=== PATIENT | male | born 1960 | race Caucasian/White ===

== ENCOUNTER 2017-01-27 07:21 | Day surgery (SDC) | payer OTHER ==
[~2017-01-27 07:21] MED LIST: ACETAMINOPHEN 1000MG/100 ML PREMIX IV ONE
[2017-01-27] MEDS ORDERED: BUPIVACAINE 0.25% W/EPI MPF 30ML VIAL IVP ONE (10:02)
[2017-01-27] MEDS ORDERED: DESFLURANE 240 ML BTL INH ONE (14:00)
[2017-01-27] MEDS ORDERED: LIDOCAINE 2% MDV (20MG/ML) 20ML VIAL IV ONE (14:00)
[2017-01-27] MEDS ORDERED: FENTANYL PF 100MCG/2ML VIAL IV ONE (14:00)
[2017-01-27] MEDS ORDERED: MIDAZOLAM HCL 2MG/2ML VIAL IV ONE (14:00)
[2017-01-27] MEDS ORDERED: DEXAMETHASONE 4 MG/ML 1ML VIAL IVP ONE (14:00)
[2017-01-27] MEDS ORDERED: ONDANSETRON HCL IV 4 MG/2 ML VIAL IVP ONE (14:00)
[2017-01-27] MEDS ORDERED: PROPOFOL 10 MG/ML VIAL IV ONE (14:00)
--- NOTE | 2017-01-28 15:56 | Operative Note ---
DATE OF SURGERY: 01/27/17 PREOPERATIVE DIAGNOSIS: POSTERIOR SCALP MASS. POSTOPERATIVE DIAGNOSIS: POSTERIOR SCALP MASS. OPERATION: EXCISION OF POSTERIOR SCALP MASS SURGEON: Hany Anguiano D.O. STUDIO ASSISTANT: Deb Montero. INDICATION: The patient is a [id number] male who about three to four years ago had a lipomatous mass removed from the posterior aspect of his scalp. This is down near his occiput on his right. He came into the clinic a few weeks ago with another mass just above the prior one. Clinically, this had the appearance of another lipomatous growth. We did discuss excision versus observation and he desired surgical excision secondary to chronic headaches. I let him know that I could not guarantee resolution with excision. Other risks include; bleeding, infection, recurrence, injury to accessory nerve, and he understood this fully. PROCEDURE: Therefore after consent was signed and questions answered, he was taken to the Operating Room and placed in the supine position. General anesthesia was administered per the Department of Anesthesia. The patient was then rotated to the left lateral position. His shoulder was taped down. His scalp and neck were prepped and draped in the usual sterile fashion. The area around the mass was anesthetized with a total of 8 mL of 0.25% Sensorcaine with Epinephrine. A localized field block was also done. At this time, a 4 cm incision was made and this was carried down to the capsule of a multilobulated lipomatous mass. This was dissected free from the surrounding tissue using cautery. This did go down to the fascia of his occipital muscle. This was then completely excised. I didn't feel there were any other projections remaining. The wound was then closed with 3-0 nylon secondary to his Vicryl allergy and he tolerated the procedure well. I will see him back in two weeks. I did discuss with the about potential stromal formation and potential recurrence in the future and she understood this fully. Hany Anguiano D.O. cc: Josiah Juarez D.O. JOB NUMBER: [id number] MTDD
== END 2017-01-27 09:40 | disposition home or self-care (01) ==
LOC: SUR 07:21
PROVIDERS: ATTEND Surgery
DX: D17.0 Benign lipomatous neoplasm of skin and subcutaneous tissue of head, face and neck (principal); I10 Essential (primary) hypertension
CPT/HCPCS: 11426; 00300; J2405; J3010

== ENCOUNTER 2017-02-11 10:54 | Emergency (ER) | payer OTHER ==
[2017-02-11] MEDS ORDERED: CLINDAMYCIN 600MG/50ML PREMIX 600 MG in DEXTROSE 1 BAG IV ONE (11:12)
--- NOTE | 2017-02-11 11:18 | Emergency Department Record ---
History of Present Illness - General Chief complaint: ENT Stated complaint: EAR PAIN Time Seen by Provider: 02/11/17 11:12 Source: Patient Mode of Arrival: Ambulatory Limitations: No limitations - History of Present Illness Initial comments: 57 yo male presents with right sided ear redness, swelling, rash and pain. He recently had a mass removed from the right posterior scalp. He saw his surgeon yesterday. The operative site was examined and noted to be free or redness or drainage. The sutures were removed. At that appointment a rash was noted under the right ear that was raised, red, and painful. He saw his PCP yesterday and was diagnosed with possible shingles. He was started on Famvir. Today the area is swollen, the ear is swollen, and he has pain around the ear, face, and neck. MD complaint: Ear pain Onset/Timin -: Days(s) Location: R ear Severity: Moderate Severity scale (1-10): 9 Quality: Aching Consistency: Constant Improves with: None Worsens with: Movement - Related Data Home Medications Medication Instructions Recorded Confirmed Last Taken Famciclovir [Famvir] 500 mg PO TID 02/11/17 02/11/17 1 Day Ago Ibuprofen [Motrin] 800 mg PO Q8H PRN 02/11/17 02/11/17 1 Day Ago Tramadol HCl [Ultram] 50 mg PO Q8H 02/11/17 02/11/17 1 Day Ago Triamterene/Hydrochlorothiazid 1 each PO DAILY 02/11/17 02/11/17 1 Day Ago [Dyazide 37.5-25 Capsule] Allergies Allergy/AdvReac Type Severity Reaction Status Date / Time Penicillins [PENICILLINS] Allergy Intermediate DIZZINESS Verified 02/11/17 11:04 Travel Screening - Travel/Exposure Within Last 30 Days Have you traveled within the last 30 days?: No - Travel/Exposure Within Last Year Have you traveled outside the [place] in the last year?: No - Additonal Travel Details Have you been exposed to anyone with a communicable illness?: No - Travel Symptoms Symptom Screening: None Review of Systems Constitutional: Denies: Chills, Fever, Weakness Eyes: Denies: Eye discharge ENT: Reports: Ear pain, Other (Neck pain, facial pain). Denies: Congestion, Throat pain Respiratory: Denies: Cough Cardiovascular: Denies: Chest pain, Palpitations, Syncope Endocrine: Denies: Fatigue, Polydipsia, Polyuria Gastrointestinal: Denies: Abdominal pain, Diarrhea, Nausea, Vomiting Genitourinary: Denies: Dysuria, Frequency, Hematuria Musculoskeletal: Denies: Arthralgia, Back pain, Joint swelling, Myalgia Skin: Reports: Change in color, Rash. Denies: Bruising Neurological: Reports: Headache. Denies: Abnormal gait, Confusion, Numbness, Seizure, Tingling, Tremors, Vertigo, Weakness Psychiatric: Denies: Anxiety Hematological/Lymphatic: Denies: Anemia, Blood Clots, Easy bleeding, Easy bruising, Swollen glands Past Medical History - SOCIAL HISTORY Smoking Status: Never smoker Alcohol Use: None Drug Use: None - RESPIRATORY Hx Respiratory Disorders: No - CARDIOVASCULAR Hx Cardio Disorders: Yes Hx Hypertension: Yes (on meds good control) - NEURO Hx Neuro Disorders: Yes Hx Dizziness: Yes (menieres) Hx Headaches: Yes (in am from cyst on scalp) - GI Hx GI Disorders: No - Hx Genitourinary Disorders: Yes Hx Kidney Stones: Yes - ENDOCRINE Hx Endocrine Disorders: No - MUSCULOSKELETAL Hx Musculoskeletal Disorders: No - PSYCH Hx Psych Problems: No - HEMATOLOGY/ONCOLOGY Hx Hematology/Oncology Disorders: No Family Medical History Any Significant Family History?: Yes Hx Cancer: Father, Mother Hx HTN: Father, Mother Physical Exam - General General Appearance: Alert, Oriented x3, Cooperative, No acute distress Limitations: No limitations - Head Head exam: Other Image of Face/Head: 1 - healing surgical site, no erythema or drainage - Eye Eye exam: Normal appearance, PERRL. negative: Conjunctival injection - ENT ENT exam: Mucous membranes dry, Mucous membranes moist. negative: Normal exam, TM's normal bilaterally (Right TM erythema) Ear exam: External canal tenderness, Other (Ear erythema with mild swelling, mild canal swelling, no pus, no no blisters on the ear or in the canal). negative: Normal external inspection, Auricular trauma Nasal Exam: Normal inspection. negative: Discharge, Sinus tenderness Mouth exam: Normal external inspection, Tongue normal Teeth exam: Normal inspection. negative: Dental caries Throat exam: negative: Normal inspection, Tonsillar erythema, Tonsillomegaly, Tonsillar exudate, L peritonsillar mass - Neck Neck exam: Tenderness (he is tender inferior and anterior to the ear). negative : Lymphadenopathy, Meningismus - Respiratory Respiratory exam: Normal lung sounds bilaterally. negative: Respiratory distress - Cardiovascular Cardiovascular Exam: Regular rate, Normal rhythm, Normal heart sounds - Rectal Rectal exam: Deferred - exam: Deferred - Extremities Extremities exam: Normal inspection, Full ROM, Normal capillary refill. negative: Tenderness - Back Back exam: Reports: Normal inspection, Full ROM. Denies: Muscle spasm, Rash noted, Tenderness - Neurological Neurological exam: Alert, Normal gait, Oriented X3 - Psychiatric Psychiatric exam: Normal affect, Normal mood. negative: Agitated, Anxious - Skin Skin exam: Dry, Intact, Normal color, Warm Course Vital Signs 02/11/17 10:58 Temperature 98.4 F Pulse Rate 98 H Respiratory 16 Rate Blood Pressure 162/101 Pulse Ox 97 - Reevaluation(s) Reevaluation #1: There are no acute changes on the CBC. 02/11/17 12:19 Reevaluation #2: CT demonstrates a 3.4 x 3.8 occipital fluid collection, cellulitis and otitis externa of the right ear. 02/11/17 13:17 Reevaluation #3: I DEMETRIS Anguiano of surgery He recommends transfer to [facility] to D Service for admission. 02/11/17 13:54 Reevaluation #4: Gagandeep Zavala of [facility] She accepts the admission/transfer to [facility] 02/11/17 14:02 Reevaluation #5: The patient was updated and agrees with the plan He is stable for transfer by private car 02/11/17 14:09 Medical Decision Making - Lab Data Result diagrams: 02/11/17 11:30 02/11/17 11:30 Disposition Disposition: Transfer Clinical Impression: Cellulitis, Otitis externa, Shingles Transfer To: [facility] Reason For Transfer: cellulits, otitis externa Accepting Physician: Sally Time Discussed w/Accepting Physician: 14:04 Condition: (1) Good Forms: Patient Portal Access Time of Disposition: 14:04
[2017-02-11 11:36] LABS: HEMATOCRIT 47.1 % (42.0-52.0); HEMOGLOBIN 15.4 gm/dl (14.0-18.0); MEAN CELL VOLUME 85.2 fl (81-97); MEAN CORPUSCULAR HEMOGLOBIN 27.8 pg (27-33); MEAN CORPUSCULAR HGB CONC 32.7 g/dl (32-36); MEAN PLATELET VOLUME 9.6 fl (7.4-10.4); PLATELET COUNT 334 K/uL (130-400); RED BLOOD COUNT 5.53 M/uL (4.40-5.70); RED CELL DISTRIBUTION WIDTH 13.7 % (11.5-14.5); WHITE BLOOD COUNT W/O DIFF 8.4 K/uL (4.2-12.2)
[2017-02-11 11:46] LABS: ALB/GLOB RATIO 1.4 (1.1-1.8); ALBUMIN 4.4 gm/dL (3.5-5.0); ALKALINE PHOSPHATASE 90 U/L (38-126); ALT/SGPT 81 U/L (21-72); ANION GAP 10.6 (7-16); AST/SGOT 34 U/L (17-59); BILIRUBIN,TOTAL 0.54 mg/dL (0.2-1.3); BLOOD UREA NITROGEN 17 mg/dL (9-20); CARBON DIOXIDE 28.4 mmol/L (22-30); CREATININE 0.9 mg/dL (0.66-1.25); EST GLOMERULAR FILTRATION RATE > 60 ml/min; GLUCOSE,RANDOM 129 mg/dL (70-110); TOTAL PROTEIN 7.5 gm/dL (6.3-8.2)
[2017-02-11 11:47] LABS: PLATELET ESTIMATE NORMAL (NORMAL)
[2017-02-11] MEDS ORDERED: MORPHINE SULFATE 5 MG/ML PFS IVP ONE (12:46)
[2017-02-11] MEDS ORDERED: CEFEPIME HCL 2 GM in 0.9 % SODIUM CHLORIDE 100ML 100 ML IVPB ONE (13:21)
--- NOTE | 2017-02-17 13:52 | CT SCAN REPORT ---
DATE: 02/11/2017. EXAM: CT OF THE FACIAL BONES. HISTORY: RIGHT-SIDED EARACHE AND SWELLING. TECHNIQUE: CT of the facial bones was performed following intravenous administration of 100 mL of Omnipaque 350 contrast. Axial images were obtained with coronal and sagittal reconstructions. COMPARISON: None. FINDINGS: Limited evaluation of the intracranial structures is unremarkable. The globes are intact. The bilateral parotid and submandibular glands are unremarkable. However, there is skin thickening associated with the right external auditory canal with surrounding inflammatory changes as well as non- enlarged but likely probable reactive pre-auricular and post-auricular lymph nodes. In addition, there is an approximately 3.8 x 2.4 cm superficial complex fluid collection in the right occipital region with internal gas bubbles consistent with abscess. Several non-enlarged jugulodigastric chain lymph nodes are present bilaterally. The paranasal sinuses and mastoid air cells are well aerated. No acute osseous abnormality. IMPRESSION: FINDINGS CONSISTENT WITH RIGHT OTITIS EXTERNA WITH SURROUNDING CELLULITIS AND REACTIVE ADENOPATHY. THERE IS ALSO A 3.8 X 2.4 CM ABSCESS IN THE RIGHT OCCIPITAL REGION. JOB [facility]BER: [id number] [facility]
== END 2017-02-11 16:45 | disposition short-term general hospital (02) ==
LOC: ER 10:54
DX: H60.11 Cellulitis of right external ear (principal); B02.9 Zoster without complications; I10 Essential (primary) hypertension; Z98.890 Other specified postprocedural states
CPT/HCPCS: 99285 ×2; 96365; 96366; 96375; 80053; 85027; 70487; Q9967; J2270

== ENCOUNTER 2017-10-31 06:37 | Day surgery (SDC) | payer OTHER ==
[2017-10-31] MEDS ORDERED: LIDOCAINE 2% MDV (20MG/ML) 20ML VIAL IV ONE (06:38)
[2017-10-31] MEDS ORDERED: PROPOFOL 10 MG/ML VIAL IV ONE (06:38)
--- NOTE | 2017-11-03 12:21 | Operative Note ---
DATE OF SURGERY: 10/31/2017 REQUESTING PHYSICIAN: Josiah Juarez DO SURGEON: Mary Stanley MD POSTOPERATIVE DIAGNOSES: 1. A 3 mm sessile polyp in the ascending colon that was removed by cold biopsy forceps. 2. A 3 mm sessile polyp in the rectum that was also removed by cold biopsy forceps. OPERATION: COLONOSCOPY and exam. REASON FOR PROCEDURE: This is a 57-year-old male with a history of colon polyps who presented for surveillance colonoscopy. SEDATION: Sedation as per anesthesia. Pulse oximetry was monitored throughout the duration of the procedure to maintain O2 saturation of 90% or greater. Supplemental oxygen was administered via nasal cannula. Cardiac and vital signs were monitored throughout the duration of the procedure and they were stable. PROCEDURE: Description of the procedure of colonoscopy, risks, and alternatives to the procedure including the risk of bleeding and perforation among others were explained to the patient who voiced understanding and agreed to have the procedure done. A physical examination was performed and the patient was found stable for sedation. The patient was then placed in the left lateral position and sedation was initiated. Digital rectal exam was performed and showed small external hemorrhoids with no palpable rectal masses. A lubricated Olympus PCF-180AL colonoscope was then inserted into the rectum under direct visualization and was advanced to the cecum without difficulty. The ileocecal valve and appendiceal orifice were identified and photographed. The colonic mucosa was carefully examined upon insertion of the colonoscope. There was a 3 mm sessile polyp in the ascending colon that was removed by cold biopsy forceps. There were no other lesions noted. The colonoscope was then withdrawn while carefully examining the colonic mucosal surfaces. The bowel preparation was good. The cecum, the rest of the ascending colon, transverse colon, descending colon, and sigmoid colon mucosa appeared normal. In the rectum, retroflexion was performed and a 3 mm sessile polyp was noted and was removed by cold biopsy forceps. The colonoscope was then straightened and withdrawn and the procedure was terminated. The patient tolerated the procedure well without any complications. The patient remained with stable vital signs and was sent to the recovery room. PLAN AND RECOMMENDATIONS: 1. The patient is to be on a high-fiber diet. 2. The patient is to have repeat colonoscopy for surveillance in 3 or 5 years depending on histology of the polyps. Thank you for allowing me to participate in the care of this patient. CC: Josiah Juarez DO [facility]
== END 2017-10-31 08:24 | disposition home or self-care (01) ==
LOC: HOP 06:37
PROVIDERS: ATTEND Internal Medicine Gastroenterology
DX: Z12.11 Encounter for screening for malignant neoplasm of colon (principal); Z86.010 Personal history of colon polyps; D12.2 Benign neoplasm of ascending colon; K62.1 Rectal polyp; I10 Essential (primary) hypertension

== ENCOUNTER 2018-05-17 17:49 | Emergency (ER) | payer OTHER ==
--- NOTE | 2018-05-17 18:29 | Emergency Department Record ---
History of Present Illness - General Chief Complaint: Fever Stated Complaint: FEVER Time Seen by Provider: 05/17/18 18:18 Source: Patient Mode of Arrival: Ambulatory - History of Present Illness Initial Comments: The patient has had about 2 months of problems with his urinary system. He began by having a kidney stone found on a CT scan. A recheck showed he had infection somewhere which was thought to be his urine. He was given a full course of cipro. Upon recheck, it wasn't cleared, so he got a full round of bactrim. Recheck after that showed he still wasn't cleared, so he got a full 3 weeks of bactrim DS, which will be completed 05-21-18. Yesterday, 05-17-18 he developed a fever, chills, and a headache along with his continuing bilateral flank pain 3-4/10 severity. He had a kidney stone removed by Dr. Rudolph, 05-14-18 and a stent placed on the left side because "his ureter is swollen." He was told to come be seen if he develops a fever. He took 500 mg tylenol at 2 pm today. He also complains of mild nausea. He denies difficulty urinating. MD Complaint: Fever Onset/Timin -: Days(s) - Related Data Home Medications Medication Instructions Recorded Confirmed Last Taken Docusate Sodium [Colace] 100 mg PO DAILY PRN 05/17/18 05/17/18 05/17/18 Sulfamethoxazole/Trimethoprim 1 each PO BID 05/17/18 05/17/18 1 Day Ago [Bactrim Ds Tablet] ~05/16/18 Previous Rx's Medication Instructions Recorded Hydrocodone/Acetaminophen [[place] 1 each PO Q6HR #14 tablet 03/07/18 5-325 Tablet] Tamsulosin HCl [Flomax] 0.4 mg PO DAILY #7 cap.er.24h 03/07/18 Allergies Allergy/AdvReac Type Severity Reaction Status Date / Time No Known Drug Allergies Allergy Verified 05/17/18 17:59 Travel Screening - Travel/Exposure Within Last 30 Days Have you traveled within the last 30 days?: No - Travel/Exposure Within Last Year Have you traveled outside the [place] in the last year?: No - Additonal Travel Details Have you been exposed to anyone with a communicable illness?: No - Travel Symptoms Symptom Screening: None Review of Systems Reviewed: No additional complaints except as noted below Constitutional: Reports: As per HPI. Denies: Chills, Fever, Malaise, Night sweats, Weakness, Weight change Eyes: Reports: As per HPI. Denies: Eye discharge, Eye pain, Photophobia, Vision change ENT: Reports: As per HPI. Denies: Congestion, Dental pain, Ear pain, Epistaxis , Hearing loss, Throat pain Respiratory: Reports: As per HPI. Denies: Cough, Dyspnea, Hemoptysis, Stridor, Wheezes Cardiovascular: Reports: As per HPI. Denies: Arrhythmia, Chest pain, Dyspnea on exertion, Edema, Murmurs, Orthopnea, Palpitations, Paroxysmal nocturnal dyspnea, Rheumatic Fever, Syncope Endocrine: Reports: As per HPI. Denies: Fatigue, Heat or cold intolerance, Polydipsia, Polyuria Gastrointestinal: Reports: As per HPI. Denies: Abdominal pain, Constipation, Diarrhea, Hematemesis, Hematochezia, Melena, Nausea, Vomiting Genitourinary: Reports: As per HPI. Denies: Dysuria, Frequency, Hematuria, Incontinence, Retention, Testicular pain, Testicular mass, Urgency Musculoskeletal: Reports: As per HPI. Denies: Arthralgia, Back pain, Gout, Joint swelling, Myalgia, Neck pain Skin: Reports: As per HPI. Denies: Bruising, Change in color, Change in hair/ nails, Lesions, Pruritus, Rash Neurological: Reports: As per HPI. Denies: Abnormal gait, Confusion, Headache, Numbness, Paresthesias, Seizure, Tingling, Tremors, Vertigo, Weakness Psychiatric: Reports: As per HPI. Denies: Anxiety, Auditory hallucinations, Depression, Homicidal thoughts, Suicidal thoughts, Visual hallucinations Hematological/Lymphatic: Reports: As per HPI. Denies: Anemia, Blood Clots, Easy bleeding, Easy bruising, Swollen glands Past Medical History - SOCIAL HISTORY Smoking Status: Never smoker Alcohol Use: None Drug Use: None - RESPIRATORY Hx Respiratory Disorders: No - CARDIOVASCULAR Hx Cardio Disorders: Yes Hx Hypertension: Yes (on meds good control) - NEURO Hx Neuro Disorders: Yes Hx Dizziness: Yes (menieres) Hx Headaches: Yes (mass on neck, removed in January) - GI Hx GI Disorders: Yes Hx of Polyps: Yes - Hx Genitourinary Disorders: Yes Hx Kidney Stones: Yes (multiple) - ENDOCRINE Hx Endocrine Disorders: No - MUSCULOSKELETAL Hx Musculoskeletal Disorders: No - PSYCH Hx Psych Problems: No - HEMATOLOGY/ONCOLOGY Hx Hematology/Oncology Disorders: No Family Medical History Any Significant Family History?: No Hx Cancer: Father, Mother Hx HTN: Father, Mother Physical Exam - General General Appearance: Alert, Oriented x3, Cooperative, Mild distress - Head Head exam: Normal inspection - Eye Eye exam: Normal appearance, PERRL Pupils: Normal accommodation - ENT ENT exam: Normal exam, Mucous membranes dry, Normal external ear exam, Normal orophraynx, TM's normal bilaterally Ear exam: Normal external inspection. negative: External canal tenderness Nasal Exam: Normal inspection. negative: Discharge, Sinus tenderness Mouth exam: Normal external inspection, Tongue normal Teeth exam: Normal inspection. negative: Dental caries Throat exam: Normal inspection. negative: Tonsillar erythema, Tonsillar exudate - Neck Neck exam: Normal inspection, Full ROM. negative: Lymphadenopathy, Meningismus , Tenderness - Respiratory Respiratory exam: Normal lung sounds bilaterally. negative: Accessory muscle use, Chest wall tenderness, Decreased breath sounds, Prolonged expiratory, Respiratory distress, Wheezes - Cardiovascular Cardiovascular Exam: Normal rhythm, Normal heart sounds, Tachycardia - GI/Abdominal GI/Abdominal exam: Soft, Normal bowel sounds. negative: Distended, Rebound, Rigid, Tenderness - Rectal Rectal exam: Deferred - exam: Deferred - Extremities Extremities exam: Normal inspection, Full ROM, Normal capillary refill. negative: Calf tenderness, Pedal edema, Tenderness - Back Back exam: Reports: Normal inspection, CVA tenderness (R), CVA tenderness (L), Full ROM. Denies: Muscle spasm, Rash noted, Tenderness - Neurological Neurological exam: Alert, CN II-XII intact, Normal gait, Oriented X3, Reflexes normal. negative: Motor sensory deficit - Psychiatric Psychiatric exam: Normal affect, Normal mood - Skin Skin exam: Dry, Intact, Normal color, Warm Course Vital Signs 05/17/18 17:51 Temperature 100.0 F H Pulse Rate 106 H Respiratory 16 Rate Blood Pressure 134/79 Pulse Ox 96 - Reevaluation(s) Reevaluation #1: 05/17/18 19:01 Nausea has improved after zofran. Awaiting CT scan. Reevaluation #2: Patient is feeling better. He now is sweating. Nausea is resolved. Awaiting CT report. 05/17/18 19:47 Reevaluation #3: Patient's headache has greatly improved after IV tylenol. DW Dr. Henao, condenser winder for Dr. Rudolph, who requests patient be transferred to [facility] for Urology resident to evaluate. 05/17/18 21:30 05/17/18 21:58 Reevaluation #4: Patient has been up to the bathroom to urinate. Discussed with Dr. Vargas who accepts patient in transfer for urology resident to see in the emergency department per Dr Henao Urologist request. 05/17/18 21:49 Medical Decision Making - Management Options MDM Management: Additional Work-up Planned (e.g. ADM/Transfer/OP Study) ( Transfer to [facility] for Urology Resident to Evaluate per Dr. Henao request/ Dr. Vargas EDept acceptance in transfer.) - Data Complexity MDM Data: Labs Ordered and/or Reviewed (UA 1.020, mod. LE, >50 WBC, TNTC RBC, 1 + bacteria, 0-1 SQ. ), X-Ray Ordered and/or Reviewed (Noncontrast CT Abd/Pelvis : Bilateral nonobstructing renal stones; bilateral ureteral stents; left stent and or ureter with moderate to severe left hydronephrosis and hydroureter: ? left stent nonfunctional, clinical correlation recommended per radiologist.) - Lab Data Result diagrams: 05/17/18 18:15 05/17/18 18:15 Disposition Disposition: Transfer Clinical Impression: Fever and chills, Acute pyelonephritis, Kidney stones Leukocytosis Qualifiers: Leukocytosis type: other Qualified Code(s): D72.828 - Other elevated white blood cell count Ureteral stent occlusion Qualifiers: Encounter type: initial encounter Qualified Code(s): T83.192A - Other mechanical complication of indwelling ureteral stent, initial encounter Disposition: Acute Care Hospital Transfer Decision to Admit: Admit from ER [facility] Reason For Transfer: Urology admission; Accepting Physician: Dr. Henao Urologist; Dr. Vargas emergency attending Time Discussed w/Accepting Physician: 21:55 Condition: (1) Good Quality - Quality Measures Quality Measures: N/A - Blood Pressure Screening Does Patient Have Any of the Following: No Blood Pressure Classification: Pre-Hypertensive BP Reading Systolic Measurement: 134 Diastolic Measurement: 79 Screening for High Blood Pressure: < Normal BP, F/U Not Required > [G6397]
[2018-05-17] MEDS: 0.9 % SODIUM CHLORIDE 1,000 ML BAG IV ONE ×2 (18:44→19:46)
[2018-05-17 18:48] LABS: HEMATOCRIT 42.6 % (42.0-52.0); HEMOGLOBIN 13.8 gm/dl (14.0-18.0); MEAN CELL VOLUME 85.7 fl (81-97); MEAN CORPUSCULAR HGB CONC 32.4 g/dl (32-36); MEAN PLATELET VOLUME 9.5 fl (7.4-10.4); PLATELET COUNT 379 K/uL (130-400); RED BLOOD COUNT 4.97 M/uL (4.40-5.70); RED CELL DISTRIBUTION WIDTH 14.9 % (11.5-14.5); URINE APPEARANCE SL CLOUDY; URINE BILIRUBIN NEGATIVE (NEGATIVE); URINE BLOOD LARGE (NEGATIVE); URINE COLOR YELLOW; URINE GLUCOSE (UA) NEGATIVE (NEGATIVE); URINE KETONE NEGATIVE (NEGATIVE); URINE LEUKOCYTE ESTERASE MODERATE (NEGATIVE); URINE NITRITE NEGATIVE (NEGATIVE); WHITE BLOOD COUNT W/O DIFF 16.1 K/uL (4.2-12.2)
[2018-05-17] MEDS: ONDANSETRON HCL IV 4 MG/2 ML VIAL IVP ONE (18:49)
[2018-05-17] MEDS: KETOROLAC 30 MG/ML VIAL IVP ONE (18:50)
[2018-05-17] MEDS: CEFTRIAXONE SODIUM 2 GM in 0.9 % SODIUM CHLORIDE 100ML 100 ML IVPB ONE (18:52)
[2018-05-17 18:55] LABS: BLOOD UREA NITROGEN 14 mg/dL (6-20); CREATININE 0.9 mg/dL (0.7-1.2); EST GLOMERULAR FILTRATION RATE > 60 mL/min
[2018-05-17 18:56] LABS: TOTAL PROTEIN 7.2 g/dL (6.6-8.7); URINE BACTERIA 1+; URINE SQUAMOUS EPITHELIAL CELL 0 - 2 /hpf; URINE WBC >50 (0-2/hpf)
[2018-05-17 18:57] LABS: GLUCOSE,RANDOM 151 mg/dL (74-109)
[2018-05-17 19:00] LABS: ALB/GLOB RATIO 1.2 (1.1-1.8); ALBUMIN 3.9 g/dL (4.0-5.0); ALKALINE PHOSPHATASE 88 U/L (40-129); ALT/SGPT 22 U/L (<41); AST/SGOT 13 U/L (10.0-50.0); MEAN CORPUSCULAR HEMOGLOBIN 27.7 pg (27-33)
[2018-05-17] MEDS: ACETAMINOPHEN 1,000 MG/100 ML BTL IVPB ONE (20:13)
--- NOTE | 2018-05-18 21:07 | CT SCAN REPORT ---
EXAM: CT SCAN ABDOMEN/PELVIS WO CONTRAST HISTORY: PATIENT HAS FEVER AND LEFT URETERAL STENT. TECHNIQUE: Serial axial CT scan of the abdomen and pelvis was performed at 2.5 mm intervals from the dome of the diaphragm down to the pubic symphysis without the use of intravenous or oral contrast. Comparison CT scan of the abdomen and pelvis dated 03/07/2018 is provided. FINDINGS: Lung windows of the lung bases demonstrate a 4 mm nodule within the right lateral lower lobe. This lesion is unchanged with respect to the prior CT scan. Follow-up CT scan of the chest can be obtained in six months to document stability of finding. The visualized heart size and contour is within normal limits. The liver demonstrates moderate diffuse fatty infiltration. Within the right hepatic lobe, there is a 12 mm cyst, which is unchanged with respect to the prior CT scan. Size and contour of the liver is within normal limits. The spleen, pancreas, bilateral adrenal glands, gallbladder appear unremarkable. There is moderate to significant left-sided hydronephrosis and hydroureter. Bilateral double-J ureteral stents are identified. The pigtail of the right double-J ureteral stent is located within the inferior pole calices. The pigtail of the left ureteral stent is located within the superior pole calices. The distal extent and pigtails of both catheters are located within the urinary bladder lumen. The axis that exists from the inferior pole of the right kidney is unchanged with respect to the prior examination. There are several nonobstructive punctate calculi within the right kidney, which are located within the mid pole and the lower pole. The larger of these small calculi within the right kidney is located with its mid pole and measures 4.4 mm. Several nonobstructive calculi are noted within the left kidney. The largest of these is located within the inferior pole and measures approximately 4 mm. The contour, caliber of the noncontrasted abdominal aorta is within normal limits. There is no CT evidence of retroperitoneal, pelvic, or inguinal lymphadenopathy. The bowel gas pattern is nonspecific and nonobstructive. The appendix is clearly visualized and there is no CT evidence of appendicitis. There is no CT evidence of free intraperitoneal fluid or free intraperitoneal air. The abdominal wall is unremarkable. The urinary bladder and prostate are unremarkable. Bone windows demonstrate bilateral L5 pars laminar defects with grade 1 spondylolisthesis at the L5-S1 disc space level. IMPRESSION: 1. BILATERAL DOUBLE-J URETERAL STENTS ARE IDENTIFIED DISCUSSED ABOVE. THERE IS MODERATE TO SIGNIFICANT LEFT-SIDED HYDRONEPHROSIS AND HYDROURETER SUGGESTING PERSISTENT OBSTRUCTION. CLINICAL CORRELATION IS RECOMMENDED. 2. NONSPECIFIC 4 MM NODULE IS NOTED WITHIN THE RIGHT LOWER LOBE. FOLLOW-UP CT SCAN OF THE CHEST CAN BE OBTAINED IN SIX MONTHS TO DOCUMENT STABILITY OF FINDING. 3. DIFFUSE HEPATIC STEATOSIS. 4. BILATERAL NONOBSTRUCTIVE RENAL CALCULI ARE NOTED DISCUSSED ABOVE. JOB NUMBER: [id number] MTDD
== END 2018-05-17 22:43 | disposition short-term general hospital (02) ==
LOC: ER 17:49
DX: T83.192A Other mechanical complication of indwelling ureteral stent, initial encounter (principal); N20.1 Calculus of ureter; N13.6 Pyonephrosis; R11.0 Nausea; R51 Headache
CPT/HCPCS: 74176; 80053; 81001; 83605; 85027; 96365; 96366; 96375; 99285; J1885; J2405